=== PATIENT | male | born 1955 | race Caucasian/White ===

== ENCOUNTER → 2020-01-09 07:51 | Outpatient (CLI) | payer MEDICARE, SELFPAY ==
--- NOTE | ~2020-01-09 | US_ITS ---
EXAMINATION: US aorta [facility] DATE: 01/09/2020 08:17 INDICATION: Abdominal aortic aneurysm screening. TECHNIQUE: Grayscale, color Doppler, and pulsed Doppler images of the aorta and common iliac arteries were obtained. COMPARISON: Chest CT 01/09/2020 FINDINGS: The aorta is normal in caliber. The right common iliac artery is normal in caliber. The left common i liac artery is normal in caliber. IMPRESSION: 1. No abdominal aortic aneurysm. Reviewed, dictated and finalized at location A. [employer]IAL MACHINE SYSTEM TECHNICIAN
--- NOTE | ~2020-01-09 | CT_ITS ---
EXAMINATION:CT lung screening DATE: 01/09/2020 08:54 INDICATION: Nicotine dependence, cigarettes, with unspecified nicotine-induced disorders. Current smo ker with 50 pack year history. TECHNIQUE: Computed tomography (CT) of the chest was performed without intravenous contrast. Automate d exposure control and iterative reconstruction technique were employed. The dose-length product (DLP ) was 354.01 mGy-cm. COMPARISON: None. FINDINGS: The lungs demonstrate mild atelectasis. A calcified right lung nodule is consistent with ol d granulomatous disease. There are a few scattered nodules in right lung measuring up to 4 mm. No ple ural effusion. The heart size is normal. There are coronary artery calcifications. No pericardial eff usion. There is severe cervical and thoracic spondylosis. IMPRESSION: 1. Lung-RADS category 2: Benign appearance or behavior. Continue annual screening with noncontrast lo w-dose chest CT in 12 months. 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 Lung-RADS category 2: Benign appearance or behavior. Continue annual screeni ng with noncontrast low-dose chest CT in 12 months.
== END ==
PROVIDERS: Visit Provider Nurse Practitioner
DX: F17.210 Nicotine dependence, cigarettes, uncomplicated (principal)
CPT/HCPCS: 76706; G0297

== ENCOUNTER → 2022-08-30 11:02 | Outpatient (CLI) | payer MEDICARE, SELFPAY ==
--- NOTE | ~2022-08-30 | CT_ITS ---
EXAMINATION: CT lung screening DATE: 08/30/2022 12:41 INDICATION: Personal history of tobacco dependence. Lung cancer screening. TECHNIQUE: Computed tomography (CT) of the chest was performed without intravenous contrast. The dose -length product was 268.96 mGy-cm. Automated exposure control and iterative reconstruction technique were employed. COMPARISON: CT dated 01/09/2020 FINDINGS: There is atherosclerosis of the aorta. Borderline heart size. No significant pleural or per icardial effusion. There is atherosclerosis of the coronary arteries. There is a calcified granuloma in the right upper lobe. Mild emphysema. No endobronchial lesions. There are few nodules in the right lung measuring 4 mm or less, without significant interval change. No pneumothorax. No endobronchial lesions. No new pulmonary nodules or masses. There is severe thoracic spondylosis. IMPRESSION: 1. Lung-RADS category 2: Benign appearance or behavior. Continue annual screening with noncontrast lo w-dose chest CT in 12 months. Reviewed, dictated and finalized at location B. IMPRESSION: 1. Lung-RADS category 2: Benign appearance or behavior. Continue annual screeni ng with noncontrast low-dose chest CT in 12 months.
== END ==
PROVIDERS: PCP Internal Medicine; Visit Provider Internal Medicine
DX: Z12.2 Encounter for screening for malignant neoplasm of respiratory organs (principal); F17.210 Nicotine dependence, cigarettes, uncomplicated
CPT/HCPCS: 71271

== ENCOUNTER 2024-05-14 00:17 | Day surgery (SDC) | payer MEDICARE, SELFPAY ==
[2024-05-03 10:15] VITALS: BMI 32.5
--- NOTE | 2024-05-03 10:31 | PC.NURSE ---
Spoke with patient regarding medication. Pt. verbalizes understanding that the last dose of XARELTO is to be taken on 05/11/2024 and the Endoscopist will instruct them when to restart after the procedure.
[2024-05-14 14:03] VITALS: BP 118/75; PULSE 87; RESP 18; TEMP 36.1; O2SAT 98
[2024-05-14] MEDS: LACTATED RINGERS 1,000 ML 150 ML IV CONT (14:05)
--- NOTE | 2024-05-14 14:30 | P.PNAN_ITS ---
Anes - Initial Pre Proc Eval Procedure: Operation Date: 05/14/24 15:00 Proposed Procedures p Colonoscopy - Christian Nieto MD Date/Time: 05/14/24 14:30 Surgeon: Christian Nieto MD Pre Op Diagnosis: PERONAL HISTORY OF COLON POLYPS, FAMILY HISTORY Patient Data Age: 69 Gender: M Height: 1.83 m Weight: 110.2 kg Last Vital Signs Temp 97 F L 05/14/24 14:03 Pulse 87 05/14/24 14:03 Resp 18 05/14/24 14:03 BP 118/75 05/14/24 14:03 Pulse Ox 98 05/14/24 14:03 O2 Del Method Room Air 05/14/24 14:03 Allergies Allergy/AdvReac Type Severity Reaction Status Date / Time statins AdvReac Mild trouble Uncoded 05/14/24 14:01 sleeping Home Medications Medication Instructions Recorded Confirmed Type amlodipine 10 mg tablet 10 mg PO DAILY 04/12/24 05/03/24 History carvedilol 6.25 mg tablet 6.25 mg PO Q12H 04/12/24 05/03/24 History cholecalciferol (vitamin D3) 25 25 mcg PO DAILY 04/12/24 05/03/24 History mcg (1,000 unit) capsule (Vitamin D3) ezetimibe 10 mg tablet 10 mg PO DAILY 04/12/24 05/03/24 History olmesartan 40 1 tablet PO DAILY 04/12/24 05/03/24 History mg-hydrochlorothiazide 25 mg tablet rivaroxaban 20 mg tablet (Xarelto) 20 mg PO DAILY 04/12/24 05/14/24 History Patient hx anesthesia problems: none Family hx anesthesia problems: none Results Review: All pre-operative results and documents have been reviewed as part of the pre- operative evaluation. [facility] Past Medical History Medical History (Updated 04/12/24 @ 09:37 by Timmy Scott MD) A-fib Surgical History Surgical History (Updated 04/12/24 @ 09:01 by France Gibbons MA) H/O prostatectomy H/O spinal fusion Family History Family History Mother Hypertension Family history of cardiovascular disease Carcinoma of colon Father Family history of Alzheimer's disease Social History Social History (Updated 04/12/24 @ 09:02 by France Gibbons MA) Smoking packs per day: 0.5 Smoking cigarettes per day: 10.0 Years smoked: 50 Smoking pack-years: 25.00 Smoking status: Current every day smoker Tobacco type: cigarettes Alcohol intake: current Drinks per week: 4 Alcohol use details: BEERS Substance use: current Substance use type: marijuana Other substance usage details: PERIODICALLY 1-2 TIMES A WEEK Living arrangements: with family Spiritual care concerns: No Anes - Eval Final PreProcedure Day of Procedure 05/14/24 14:30 Patient weight: obese Heart: regular rate and rhythm Lungs: clear to auscultation Airway: Mallampati scale class II Neurological: alert and oriented Last oral intake: >/= 8 hours ASA classification: III Emergent: no Anesthetic plan: proceed Anesthesia type and monitoring: general GIVS and standard monitoring Results Review: All pre-operative results and documents have been reviewed as part of the pre- operative evaluation. Informed Consent: The patient's anesthetic plan and its attendant risks and benefits were discussed with the patient/family/POA. Questions were solicited and answers provided to the satisfaction of the patient/family/POA
--- NOTE | 2024-05-14 14:58 | PM.HPGS ---
History of Present Illness History of Present Illness Consent: Risks, benefits, and alternatives have been discussed and questions answered. Patient agrees to proceed with procedure. Chief complaint: PERONAL HISTORY OF COLON POLYPS, FAMILY HISTORY Narrative: Edgar Sheehan is a 69 year old male with colon polyp 3 years ago Review of Systems Review of Systems: All systems reviewed & are unremarkable except as noted in HPI and below PMFSH Past Medical History Medical History (Updated 04/12/24 @ 09:37 by Timmy Scott MD) A-fib Surgical History Surgical History (Updated 04/12/24 @ 09:01 by France Gibbons MA) H/O prostatectomy H/O spinal fusion Family History Family History Mother Hypertension Family history of cardiovascular disease Carcinoma of colon Father Family history of Alzheimer's disease Social History Social History (Updated 04/12/24 @ 09:02 by France Gibbons MA) Smoking packs per day: 0.5 Smoking cigarettes per day: 10.0 Years smoked: 50 Smoking pack-years: 25.00 Smoking status: Current every day smoker Tobacco type: cigarettes Alcohol intake: current Drinks per week: 4 Alcohol use details: BEERS Substance use: current Substance use type: marijuana Other substance usage details: PERIODICALLY 1-2 TIMES A WEEK Living arrangements: with family Spiritual care concerns: No Meds Home Medications and Allergies Home Medications Medication Instructions Recorded Confirmed Type amlodipine 10 mg tablet 10 mg PO DAILY 04/12/24 05/03/24 History carvedilol 6.25 mg tablet 6.25 mg PO Q12H 04/12/24 05/03/24 History cholecalciferol (vitamin D3) 25 25 mcg PO DAILY 04/12/24 05/03/24 History mcg (1,000 unit) capsule (Vitamin D3) ezetimibe 10 mg tablet 10 mg PO DAILY 04/12/24 05/03/24 History olmesartan 40 1 tablet PO DAILY 04/12/24 05/03/24 History mg-hydrochlorothiazide 25 mg tablet rivaroxaban 20 mg tablet (Xarelto) 20 mg PO DAILY 04/12/24 05/14/24 History Allergies Allergy/AdvReac Type Severity Reaction Status Date / Time statins AdvReac Mild trouble Uncoded 05/14/24 14:01 sleeping Vital Signs Vital Signs - 24 hr 05/14/24 14:03 Temperature 97 F L Pulse Rate 87 Respiratory Rate 18 Blood Pressure 118/75 Pulse Oximetry 98 Oxygen Delivery Room Air Exam Const: General: comfortable and no acute distress HENMT: Face/Nose/Sinus: Normal nares present Eyes: General: appearance normal, both eyes and all related structures Neck: Neck: no JVD Resp: Auscultation: clear to auscultation bilaterally Cardio: Rate: regular rate Rhythm: regular rhythm GI: Inspection: non-distended GI Palp: Yes Soft to palpation Skin: General skin exam: normal color Neuro: General: gait normal Speech: normal speech Extrem: General: normal to inspection Psych: Mental Status: mental status grossly normal Assessment and Plan Assessment and plan (1) History of colon polyps: Code(s): Z86.010 - Personal history of colonic polyps Status: Acute Assessment and Plan: colonoscopy (2) Family history of colon cancer in mother: Code(s): Z80.0 - Family history of malignant neoplasm of digestive organs Status: Acute
[2024-05-14 15:17] VITALS: BP 101/51; PULSE 73; RESP 19; O2SAT 97
[2024-05-14 15:27] VITALS: BP 100/63; PULSE 79; RESP 18; O2SAT 96
[2024-05-14 15:37] VITALS: BP 110/76; PULSE 76; RESP 18; O2SAT 98
== END 2024-05-14 15:47 | disposition home or self-care (01) ==
PROVIDERS: PCP Emergency Medicine; Referring Provider Emergency Medicine; Visit Provider Internal Medicine Gastroenterology
PROC: 0DJD8ZZ Inspection of Lower Intestinal Tract, Via Natural or Artificial Opening Endoscopic (ICD-10-PCS; CPT 45378; principal; 2024-05-14 15:00)
DX: Z12.11 Encounter for screening for malignant neoplasm of colon (principal); D12.3 Benign neoplasm of transverse colon; D12.5 Benign neoplasm of sigmoid colon; K57.30 Diverticulosis of large intestine without perforation or abscess without bleeding; K64.8 Other hemorrhoids; Z80.0 Family history of malignant neoplasm of digestive organs; I48.91 Unspecified atrial fibrillation; F17.210 Nicotine dependence, cigarettes, uncomplicated
CPT/HCPCS: 45385; 88305; J2001; J2704; J7120

== ENCOUNTER 2025-08-13 09:12 | Outpatient (CLI) | payer MEDICARE, SELFPAY ==
[2025-08-13 13:02] LABS: Hematocrit 44.3 % (42.0-52.0); Hemoglobin 14.6 g/dL (14.0-18.0); Immature Granulocyte Percent A 0.2 % (0-0.5); Lymphocytes Absolute Auto 1.84 K/mm3 (0.9-3.2); Mean Corpuscular HGB Conc 33.0 g/dl (32-36); Mean Corpuscular Hemoglobin 30.4 pg (26-34); Mean Corpuscular Volume 92.1 fl (80-100); Nucleated Red Blood Cells Absolute Auto 0.000 K/mm3 (0.0-0.012); Nucleated Red Blood Cells Perc 0.0 % (0.0-0.2); Platelet Count Result 190 k/mm3 (150-375); Red Blood Count 4.81 M/mm3 (4.6-6.20); White Blood Count 5.3 K/mm3 (4.5-10.0)
[2025-08-13 13:23] LABS: Alanine Aminotransferase 50 U/L (6-50); Albumin Level 4.4 g/dL (3.5-5.1); Alkaline Phosphatase 52 U/L (38-126); Anion Gap 9 mmol/L (4-12); Aspartate Amino Transferase 49 U/L (17-59); Bilirubin,Total 0.4 mg/dL (0.2-1.3); Blood Urea Nitrogen 14 mg/dL (9-20); Calcium 9.4 mg/dL (8.4-10.2); Carbon Dioxide 27 mmol/L (22-30); Chloride 104 mmol/L (98-107); Cholesterol 117 mg/dL (0-200); Estimated Glomerular Filt Rate > 60; Glucose 103 mg/dL (65-110); HDL Direct 29 mg/dL; Potassium 3.8 mmol/L (3.4-5.0); Sodium 140 mmol/L (137-145); Total Protein 6.9 g/dL (6.3-8.2); Triglycerides 112 mg/dL (<150)
[2025-08-13 13:58] LABS: Prostate Specific Antigen < 0.1 ng/mL (< OR = 4.0)
== END 2025-08-13 09:13 | disposition home or self-care (01) ==
LOC: ANHGOSHLAB 09:14
PROVIDERS: PCP Internal Medicine; Visit Provider Internal Medicine
DX: I48.91 Unspecified atrial fibrillation (principal); I10 Essential (primary) hypertension; E78.5 Hyperlipidemia, unspecified; Z79.01 Long term (current) use of anticoagulants; Z85.46 Personal history of malignant neoplasm of prostate; Z12.5 Encounter for screening for malignant neoplasm of prostate
CPT/HCPCS: 36415; 80053; 80061; 82172; 84153; 85025; G0103